=== PATIENT | female | born 1975 | race Two or more races ===

== ENCOUNTER 2018-12-19 01:13 | Emergency (ER) | payer SELFPAY ==
[2018-12-19] MEDS ORDERED: KETOROLAC TROMETHAMINE 60 MG/2 ML SDV IM ONE (04:18)
[2018-12-19] MEDS ORDERED: HYDROCODONE/ACETAMINOPHEN 5-325 MG (6 TAB/ER DISP) PO PRN (04:18)
--- NOTE | 2018-12-19 04:21 | ER Document Report ---
HPI - HPI Patient complains to provider of: lower back pain Time Seen by Provider: 12/19/18 04:08 Pain Level: 5 Context: Patient is a 43-year-old female that comes to the emergency department for chief complaint of lower back pain on the left side. She states that pain started earlier today. She states she gets this frequently, she states she has a history of degenerative disc disease and frequently develops muscle spasms. She denies radiation down her leg, comes around slightly towards the hip, she states she has arthritis in her hip and she is used to this as well. She denies any incontinence, numbness, fever, history of IV drug abuse. She denies any injury. - CONSTITUTIONAL Constitutional: DENIES: Fever, Chills - REPRODUCTIVE Reproductive: DENIES: : - MUSCULOSKELETAL Musculoskeletal: REPORTS: Extremity pain - Lt hip/ posterior GM Past Medical History - General Information source: Patient - Social History Smoking Status: Never Smoker Frequency of alcohol use: None Drug Abuse: None Lives with: Family Family History: Reviewed & Not Pertinent Patient has suicidal ideation: No Patient has homicidal ideation: No Endocrine Medical History: Reports: Hx Diabetes Mellitus Type 2 Renal/ Medical History: Denies: Hx Peritoneal Dialysis - Immunizations Immunizations up to date: Yes Hx Diphtheria, Pertussis, Tetanus Vaccination: Yes Vertical Provider Document - CONSTITUTIONAL General Appearance: WD/WN, No Apparent Distress - Patient has wincing with movement and moves stiffly but while she is relaxed on the bed she does not appear to be in any distress, Obese - INFECTION CONTROL TRAVEL OUTSIDE OF THE [place] IN LAST 30 DAYS: No - HEENT HEENT: Atraumatic, Normocephalic - NECK Neck: Normal Inspection - RESPIRATORY Respiratory: Breath Sounds Normal, No Respiratory Distress - CARDIOVASCULAR Cardiovascular: Regular Rate, Regular Rhythm - GI/ABDOMEN Gastrointestinal: Abdomen Soft, Abdomen Non-Tender - BACK Back: negative: Normal Inspection - Very specific tenderness along the left paralumbar musculature with tight muscle fibers and spasm. No midline tenderness, no saddle anesthesia, no signs of trauma. Normal upper and lower extremity range of motion, normal strength, normal distal neurovascular exam. - MUSCULOSKELETAL/EXTREMETIES Musculoskeletal/Extremeties: MAEW, FROM, Non-Tender - NEURO Level of Consciousness: Awake, Alert, Appropriate Motor/Sensory: No Motor Deficit, No Sensory Deficit - DERM Integumentary: Warm, Dry, No Rash Course - Re-evaluation Re-evalutation: Patient describing this is a flareup of her chronic lower back pain, she does not have any neurological deficits on exam, she is not in any obvious distress, she moves with a slight limp but again reports this is frequent and chronic with her arthritis of the hip. New to the area, trying to establish insurance. Examination is benign other than tight muscle fibers and pain with palpation of the left paraspinal musculature. Negative straight leg raise. No midline tenderness. No saddle anesthesia. Patient states she has had good results with Toradol in the past but poor results with Flexeril or similar muscle relaxer. As a result she was given Toradol and just a few diazepam with specific i nstructions, follow-up instructions, and return precautions which were discussed in detail. Patient states satisfaction and agreement with plan. - Vital Signs Vital signs: Temp Pulse Resp BP Pulse Ox 97.7 F 79 20 141/103 H 99 12/19/18 01:19 12/19/18 01:19 12/19/18 01:19 12/19/18 01:19 12/19/18 01:19 Discharge - Discharge Clinical Impression: Lower back pain Qualifiers: Chronicity: acute Back pain laterality: left Sciatica presence: without sciatica Qualified Code(s): M54.5 - Low back pain Condition: Stable Disposition: HOME, SELF-CARE Additional Instructions: Evaluation is consistent with strain and spasm of the paraspinal musculature at the lumbar area. Take muscle relaxer as prescribed, apply heat to the area, take [id number] anti-inflammatory, rest the area. Follow-up with primary care for additional evaluation and management. Return if you worsen including numbness, inability to urinate, inability to control your bowels, fever, or any other concerning or worsening symptoms. Prescriptions: Diazepam [Valium 5 mg Tablet] 1 - 2 tab PO TID PRN #10 tablet PRN Reason:
[2018-12-19 04:50] VITALS: BP 133/93
== END 2018-12-19 04:51 | disposition home or self-care (01) ==
LOC: ER 01:13
DX: M54.5 Low back pain (principal); M62.830 Muscle spasm of back; E11.9 Type 2 diabetes mellitus without complications; E66.9 Obesity, unspecified
CPT/HCPCS: 99283; 96372; J1885

== ENCOUNTER 2019-01-10 20:59 | Emergency (ER) | payer MEDICAID ==
[2019-01-10 23:37] LABS: APPEARANCE,URINE CLEAR; BILIRUBIN,URINE NEGATIVE (NEGATIVE); COLOR,URINE STRAW; GLUCOSE, URINE >=500 mg/dL (NEGATIVE); KETONES,URINE NEGATIVE (NEGATIVE); LEUKOCYTE ESTERASE,URINE NEGATIVE (NEGATIVE); NITRITE,URINE NEGATIVE (NEGATIVE); PROTEIN,URINE NEGATIVE (NEGATIVE); URINE SPECIFIC GRAVITY 1.018; UROBILINOGEN,URINE NEGATIVE mg/dL (<2.0)
--- NOTE | 2019-01-11 00:36 | ER Document Report ---
ED General - General Chief Complaint: Vag Bleeding, +preg <12wks Stated Complaint: SPOTTING,STOMACH PAIN Time Seen by Provider: 01/10/19 23:44 Notes: Patient is a 43-year-old female presents with complaint of some vaginal spotting and lower abdominal cramping. She just recently found out she is . She has not yet had an ultrasound. She denies any heavy bleeding. She says that he did start after having sex with her last night. She is . She said 6 live children. She denies any fevers. No other complaints at this time. TRAVEL OUTSIDE OF THE [place] IN LAST 30 DAYS: No - Related Data Allergies/Adverse Reactions: aspirin Allergy (Verified 12/19/18 01:14) Past Medical History - General Last Menstrual Period: oct or nov - Social History Smoking Status: Former Smoker Chew tobacco use (# tins/day): No Frequency of alcohol use: None Drug Abuse: None Family History: Reviewed & Not Pertinent Patient has suicidal ideation: No Patient has homicidal ideation: No - Past Medical History Cardiac Medical History: Reports: Hx Hypertension Endocrine Medical History: Reports: Hx Diabetes Mellitus Type 2 Renal/ Medical History: Denies: Hx Peritoneal Dialysis GI Medical History: Reports: Hx Hiatal Hernia Past Surgical History: Reports: Hx Cholecystectomy, Hx Orthopedic Surgery - 2000 - Immunizations Immunizations up to date: Yes Hx Diphtheria, Pertussis, Tetanus Vaccination: Yes Review of Systems - Review of Systems Notes: My Normal Review Basic REVIEW OF SYSTEMS: CONSTITUTIONAL : Denies fever, chills, or sweats. Denies recent illness. EENT: Denies eye, ear, throat, or mouth pain or symptoms. Denies nasal or sinus congestion. RESPIRATORY: Denies cough, cold, or chest congestion. Denies shortness of breath, difficulty breathing, or wheezing. GASTROINTESTINAL: Lower abdominal pain. Denies nausea, vomiting, or diarrhea. Denies constipation. Last BM: GENITOURINARY: Denies difficulty urinating, painful urination, burning, frequency, or blood in urine. FEMALE GENITOURINARY: Vaginal spotting. MUSCULOSKELETAL: Denies neck or back pain or joint pain or swelling. SKIN: Denies rash or skin lesions. NEUROLOGICAL: Denies altered mental status or loss of consciousness. Denies headache. Denies weakness or paralysis or loss of use of either side. Denies problems with gait or speech. Denies sensory or motor loss. ALL OTHER SYSTEMS REVIEWED AND NEGATIVE. Physical Exam - Vital signs Vitals: Temp Pulse Resp BP Pulse Ox 98.5 F 90 18 140/90 H 100 01/10/19 21:28 01/10/19 21:28 01/10/19 21:28 01/10/19 21:28 01/10/19 21:28 - Notes Notes: General Appearance: Well nourished, alert, cooperative, no acute distress, no obvious discomfort. Well-appearing. Vitals: reviewed, See vital signs table. Head: no swelling or tenderness to the head Eyes: PERRL, EOMI, Conjuctiva clear Mouth: No decreasd moisture Lungs: No wheezing, No rales, No rhonci, No accessory muscle use, good air exchange bilaterally. Heart: Normal rate, Regular rythm, No murmur, no rub Abdomen: Normal BS, soft, No rigidity, No reproducible abdominal tenderness to palpation, No guarding, no rebound, no abdominal masses, no organomegaly Extremities: strength 5/5 in all extremities, good pulses in all extremities, no swelling or tenderness in the extremities, no edema. Skin: warm, dry, appropriate color, no rash Neuro: speech clear, oriented x 3, normal affect, responds appropriately to questions. Course - Re-evaluation Re-evalutation: 01/11/19 05:46 Ultrasound shows gestational sac but no treating . Her hCG level is only 800 so this is not completely surprising. I talked the patient like informed her that this likely is pest control service representative for being for early over the disc can also mean that she has a blighted ovum. She has an appointment with her OB doctor on Sunday. I encouraged her to follow-up with OB doctor on Sunday and have her blood work rechecked to see if her hCG levels increasing. I informed her that ectopic is highly unlikely however is not completely impossible and therefore she should have a low threshold to return to the ER if she has worsening pain, heavy bleeding, or if she feels unwell. Patient agrees with plan and will be discharged home. Dictation of this chart was performed using voice recognition software; therefore, there may be some unintended grammatical errors. - Vital Signs Vital signs: Temp Pulse Resp BP Pulse Ox 98.3 F 80 18 132/88 H 99 01/11/19 03:09 01/11/19 03:09 01/11/19 03:09 01/11/19 03:09 01/11/19 03:09 - Laboratory Laboratory results interpreted by me: 01/10/19 01/11/19 22:52 00:10 Beta HCG, Quant 801.25 H Urine Glucose (UA) >=500 H Urine Blood LARGE H Urine HCG, Qual POSITIVE H Discharge - Discharge Clinical Impression: Vaginal bleeding during Condition: Good Disposition: HOME, SELF-CARE Additional Instructions: Your ultrasound shows a gestational sac but we do not yet see the baby. As discussed with you this is likely because you have a early however this can be pest control service representative of something called a blighted ovum or a baby does not form. We will not know this for sure until your repeat hormone levels done. This can be done by your OB doctor at your appointment on Sunday. I have printed off your test results today for you to take with you to your appointment on Sunday. It is unlikely that you have an ectopic at this time however there are rare cases where people have a gestational sac in the uterus on ultrasound and go on to develop an ectopic outside the uterus. Signs of this would be severe pain and sometimes heavy bleeding. If you have severe pain or increasing bleeding then have a low threshold to return to ER for reevaluation. You take your vitamins as prescribed. Please avoid sexual activity and heavy lifting until cleared by your OB doctor.
--- NOTE | 2019-01-11 02:29 | RADIOLOGY REPORT (SQ) ---
EXAM DESCRIPTION: US TRANSVAGINAL COMPLETED DATE/TME: 01/11/2019 00:03 CLINICAL HISTORY: 43 years, Female, vaginal bleeding in COMPARISON: None. TECHNIQUE: Transverse and longitudinal transvaginal images in a first trimester patient LIMITATIONS: None. FINDINGS: The uterus measures 10 x 5 x 5 cm. Cervical length is 3 cm. There is a visible intrauterine gestational sac. No yolk sac or heart tones at this time. No visible pole. Current ultrasound age is 5 weeks 2 days. The maternal ovaries are not well seen, at least in part secondary to patient body habitus and their position in the pelvis. However, there is a complex appearing cystic mass in the left adnexa. This has peripheral areas of soft tissue nodularity and possible calcification. This could reflect dermoid cyst or teratoma, with other etiologies not excluded.. This measures approximately 7 x 5 x 7 cm. No free fluid. IMPRESSION: Single, intrauterine gestation with current ultrasound age 5 weeks 2 days. Close obstetric follow-up recommended. Correlate with beta hCG levels. The ovaries are not well seen however there is a complex mixed cystic and solid mass in the left adnexa. This could reflect dermoid cyst/teratoma. Other etiologies are not excluded. Please refer to below for follow-up. Recommendations for f/u of ovarian complex cysts (1): Endometrioma: <= 7 cm: US f/u 6-12 wks. If not surgically resected, US f/u annually. >7 cm: Consider MR w/IVC or surgical evaluation. If not surgically resected, US f/u annually. Dermoid: <= 5 cm: MR w/IV contrast. If not surgically resected, US f/u annually. >5 cm: Surgical evaluation. If not surgically resected, MR w/IVC; then US f/u annually Indeterminate cyst - multiple thin <=3 mm septations: Any size in any age: Consider surgical evaluation. Indeterminate cyst - non-hyperechoic nodule w/o blood flow: Any size in any age: Consider MR w/IVC or surgical evaluation. Indeterminate cyst - other, not classic for but suggestive of hemorrhagic cyst, endometrioma or dermoid: Pre-menopause: <= 7 cm: US f/u 6-12 weeks. If unchanged, continue f/u with US or consider MR w/IVC. If these do not confirm endometrioma or dermoid, consider surgical evaluation. >7 cm: Consider MR w/IVC or surgical evaluation. Post-menopause (>=1 year from last menstrual period): Any size: Consider surgical evaluation. Cyst worrisome for malignancy (thick, irregular >=3 mm septations or nodule with blood flow): Any size in any age: Consider surgical evaluation. (1) Recommendations based upon the 2010 SRU Consensus Conference Statement on the Management of Asymptomatic Ovarian and Other Adnexal Cysts Imaged at US: Radiology. 2009;256(3):943-54 copyright 2011 [employer]- All Rights Reserved
[2019-01-11 03:11] VITALS: BP 132/88
== END 2019-01-11 03:11 | disposition home or self-care (01) ==
LOC: ER 20:59
DX: O46.91 Antepartum hemorrhage, unspecified, first trimester (principal); O16.1 Unspecified maternal hypertension, first trimester; O24.911 Unspecified diabetes mellitus in pregnancy, first trimester; O26.891 Other specified pregnancy related conditions, first trimester; R10.30 Lower abdominal pain, unspecified; Z3A.00 Weeks of gestation of pregnancy not specified
CPT/HCPCS: 36415; 76817; 81001; 81025; 84702; 86900; 86901; 93976; 99284

== ENCOUNTER 2019-01-16 18:43 | Emergency (ER) | payer SELFPAY ==
[2019-01-16 20:31] LABS: APPEARANCE,URINE CLEAR; BILIRUBIN,URINE NEGATIVE (NEGATIVE); COLOR,URINE STRAW; GLUCOSE, URINE >=500 mg/dL (NEGATIVE); KETONES,URINE NEGATIVE (NEGATIVE); LEUKOCYTE ESTERASE,URINE NEGATIVE (NEGATIVE); NITRITE,URINE NEGATIVE (NEGATIVE); PROTEIN,URINE NEGATIVE (NEGATIVE); URINE SPECIFIC GRAVITY 1.018; UROBILINOGEN,URINE NEGATIVE mg/dL (<2.0)
[2019-01-16 21:07] LABS: ABSOLUTE EOSINOPHILS # (AUTO) 0.1 10^3/uL (0.0-0.6); ABSOLUTE LYMPHOCYTES (AUTO) 1.7 10^3/uL (0.5-4.7); ABSOLUTE MONOCYTES (AUTO) 0.3 10^3/uL (0.1-1.4); ABSOLUTE NEUT (AUTO) 2.4 10^3/uL (1.7-8.2); BASOPHILS % (AUTO) 0.9 % (0-2); EOSINOPHILS % (AUTO) 2.9 % (0-6); HEMATOCRIT 40.5 % (36.0-47.0); HEMOGLOBIN 13.8 g/dL (12.0-15.5); MEAN CORPUSCULAR HEMOGLOBIN 29.2 pg (27.0-33.4); MEAN CORPUSCULAR VOLUME 86 fl (80-97); MONOCYTES % (AUTO) 7.5 % (3-13); PLATELET COUNT 271 10^3/uL (150-450); RED BLOOD COUNT 4.71 10^6/uL (3.72-5.28); RED CELL DISTRIBUTION WIDTH 13.5 % (11.5-14.0); SEGMENTED NEUTROPHILS % (AUTO) 52.7 % (42-78); TOTAL CELLS COUNTED % (AUTO) 100 %; WHITE BLOOD COUNT 4.6 10^3/uL (4.0-10.5)
--- NOTE | 2019-01-16 21:26 | ER Document Report ---
ED Medical Screen (RME) - General Chief Complaint: Vaginal Bleeding Stated Complaint: VAGINAL BLEEDING Time Seen by Provider: 01/16/19 21:23 Primary Care Provider: ILDEFONSO MACK CNM [Primary Care Provider] - Follow up as needed Notes: patient reports to the ED with complaints of vaginal bleeding. Patient is . Approximately 6 weeks. She reports she started spotting on Sunday and today she felt a large blood clot. She had appointment on Sunday and was told everything was fine. Denies other symptoms such as fever vomiting diarrhea. I have greeted and performed a rapid initial assessment of this patient. A comprehensive ED assessment and evaluation of the patient, analysis of test results and completion of the medical decision making process will be conducted by additional ED providers. TRAVEL OUTSIDE OF THE [place] IN LAST 30 DAYS: No - Related Data Allergies/Adverse Reactions: aspirin Allergy (Verified 01/16/19 18:48) Past Medical History - Past Medical History Cardiac Medical History: Reports: Hx Hypertension Endocrine Medical History: Reports: Hx Diabetes Mellitus Type 2 Renal/ Medical History: Denies: Hx Peritoneal Dialysis GI Medical History: Reports: Hx Hiatal Hernia Past Surgical History: Reports: Hx Cholecystectomy, Hx Orthopedic Surgery - 2000 - Immunizations Immunizations up to date: Yes Hx Diphtheria, Pertussis, Tetanus Vaccination: Yes Physical Exam - Vital signs Vitals: Temp Pulse Resp BP Pulse Ox 98.9 F 95 18 128/82 H 100 01/16/19 18:54 01/16/19 18:54 01/16/19 18:54 01/16/19 18:54 01/16/19 18:54 Course - Vital Signs Vital signs: Temp Pulse Resp BP Pulse Ox 98.9 F 95 18 128/82 H 100 01/16/19 18:54 01/16/19 18:54 01/16/19 18:54 01/16/19 18:54 01/16/19 18:54 - Laboratory Result Diagrams: 01/16/19 20:45 Laboratory results interpreted by me: 01/16/19 20:00 Urine Glucose (UA) >=500 H Urine Blood MODERATE H Doctor's Discharge - Discharge Referrals: ILDEFONSO MACK CNM [Primary Care Provider] - Follow up as needed
--- NOTE | 2019-01-17 00:22 | RADIOLOGY REPORT (SQ) ---
US PELVIS HISTORY: Early . Pelvic pain. COMPARISON: 01/11/2019 TECHNIQUE: Grayscale, color Doppler, and spectral Doppler ultrasound images of the pelvis were obtained. FINDINGS: There is an intrauterine gestational sac with a mean sac diameter of 0.85 cm, corresponding to 5 weeks 5 days of . No pole or yolk sac is seen at this time. There is a complex lesion in the left adnexa which measures 6.7 cm containing echogenic material. There is normal color Doppler blood flow in the left ovary. Right ovary is not seen. IMPRESSION: 1. Intrauterine gestational sac corresponding to 5 weeks 5 days of . No yolk sac or pole is seen at this time. Findings may represent early . Recommend short-term follow-up ultrasound imaging. 2. Unchanged complex mass in the left adnexa which may represent a dermoid cyst. Consider MRI for complete evaluation.
--- NOTE | 2019-01-17 02:27 | ER Document Report ---
ED General - General Chief Complaint: Vaginal Bleeding Stated Complaint: VAGINAL BLEEDING Time Seen by Provider: 01/16/19 21:23 Primary Care Provider: GHASSAN GRIFFIN DO [ACTIVE STAFF] - Follow up in 3-5 days Notes: Patient is a 43-year-old female who presents emergency department with a chief complaint of bleeding and passing a large clot. She passed her clot around 1800 this evening. She has had bleeding since last Sunday but today she was more active and noticed that she had a larger clot. She denies any cramping but states that she feels a little bit of discomfort. She was seen by the health department the other day and everything checked out normal. She has not followed up with [facility] because she does not have an appointment until later. TRAVEL OUTSIDE OF THE [place] IN LAST 30 DAYS: No - Related Data Allergies/Adverse Reactions: aspirin Allergy (Verified 01/16/19 18:48) Past Medical History - Social History Smoking Status: Never Smoker Family History: Reviewed & Not Pertinent - Past Medical History Cardiac Medical History: Reports: Hx Hypertension Endocrine Medical History: Reports: Hx Diabetes Mellitus Type 2 Renal/ Medical History: Denies: Hx Peritoneal Dialysis GI Medical History: Reports: Hx Hiatal Hernia Past Surgical History: Reports: Hx Cholecystectomy, Hx Orthopedic Surgery - 2000 - Immunizations Immunizations up to date: Yes Hx Diphtheria, Pertussis, Tetanus Vaccination: Yes Review of Systems - Review of Systems Notes: REVIEW OF SYSTEMS: CONSTITUTIONAL : Denies recent illness. Denies recent unintentional weight loss. Denies fever, chills, or sweats. EENT: Denies eye, ear, throat, or mouth pain, discharge, or symptoms. Denies nasal or sinus congestion. CARDIOVASCULAR: Denies chest pain. RESPIRATORY: Denies shortness of breath, cough, congestion, difficulty breathing, or wheezing. GASTROINTESTINAL: Denies nausea, vomiting, and diarrhea. Denies abdominal pain. Denies constipation. Last BM: GENITOURINARY: Denies difficulty urinating, burning, blood in urine, urgency or frequency. FEMALE GENITOURINARY: See HPI MUSCULOSKELETAL: Denies neck and back pain. Denies joint pain or swelling. SKIN: Denies rash, itchiness, or lesions HEMATOLOGIC : Denies easy bruising or bleeding. LYMPHATIC: Denies swollen, painful, enlarged glands. NEUROLOGICAL: Denies no numbness or tingling denies weakness. Denies headache. Denies altered mental status. Denies alteration in speech. PSYCHIATRIC: Denies stress, anxiety, alteration in sleep patterns, or depression. All other systems reviewed and negative. Physical Exam - Vital signs Vitals: Temp Pulse Resp BP Pulse Ox 98.9 F 95 18 128/82 H 100 01/16/19 18:54 01/16/19 18:54 01/16/19 18:54 01/16/19 18:54 01/16/19 18:54 - Notes Notes: PHYSICAL EXAMINATION: GENERAL: Appears well, healthy, well-nourished, no acute distress. HEAD: Normocephalic, atraumatic. EYES: PERRL, conjunctiva normal, all extraocular movements intact, sclera nonicteric ENT: Moist mucous membranes. NECK: Supple, no noticeable swelling, redness, rash. Normal range of motion. LUNGS: Equal breath sounds bilaterally and clear to auscultation. No wheezes rales or rhonchi. CARDIOVASCULAR: S1-S2, regular rate, regular rhythm. Radial pulses 2+, normal. ABDOMEN: Normoactive bowel sounds. Soft, mildly tender, no guarding, no rebound tenderness, and no masses palpated. EXTREMITIES: Normal strength and range of motion, no pitting or edema. No cyanosis. NEUROLOGICAL: Moves all extremities upon command. Strength 5/5 in all extremities. PSYCH: Normal mood, normal affect. SKIN: Warm, dry. No rash, lesions, ulcerations noted. Normal skin turgor. Course - Re-evaluation Re-evalutation: 01/17/19 02:27 Patient hCG has decreased from 800- to 597. There is still a gestational sac on ultrasound, but there is a possibility she could be miscarrying due to her hCG levels dropping. She will follow-up with [facility] or come here to the emergency department if she continues to have worsening bleeding. I told her to be on pelvic rest at this time. She agrees. Her hematology is stable. Urinalysis has blood in it, consistent with bleeding. Verbal discharge instructions were given to the patient. They verbalized understanding. They are stable for discharge. - Vital Signs Vital signs: Temp Pulse Resp BP Pulse Ox 98.1 F 86 20 145/80 H 98 01/17/19 03:20 01/17/19 03:20 01/17/19 03:20 01/17/19 03:20 01/17/19 03:20 - Laboratory Result Diagrams: 01/16/19 20:45 Laboratory results interpreted by me: 01/16/19 01/16/19 20:00 20:45 Beta HCG, Quant 579.66 H Urine Glucose (UA) >=500 H Urine Blood MODERATE H Discharge - Discharge Clinical Impression: Vaginal bleeding Condition: Stable Disposition: HOME, SELF-CARE Additional Instructions: You were seen today in the emergency department for vaginal bleeding. Your hCG levels have dropped. There is a possibility that you could be miscarrying at this time. Please follow-up with [facility] in regards to this visit. See if you can get an earlier visit due to increased bleeding. If you continue to have bleeding or clots, please return to the emergency department. Referrals: GHASSAN GRIFFIN DO [ACTIVE STAFF] - Follow up in 3-5 days
[2019-01-17 04:54] VITALS: BP 145/80
== END 2019-01-17 03:25 | disposition home or self-care (01) ==
LOC: ER 18:43
DX: O20.9 Hemorrhage in early pregnancy, unspecified (principal); Z90.49 Acquired absence of other specified parts of digestive tract
CPT/HCPCS: 36415; 76817; 81001; 84702; 85025; 86900; 86901; 99284

== ENCOUNTER → 2019-01-17 | Outpatient (CLI) | payer SELFPAY ==
--- NOTE | 2019-01-17 15:07 | RADIOLOGY REPORT (SQ) ---
EXAM DESCRIPTION: U/S OB TRANSVAGINAL W/O DOP COMPLETED DATE/TIME: 01/17/2019 2:28 pm REASON FOR STUDY: ENCTR FOR SUPERVISION OF OTHER NORMAL , 1ST TRIMESTER (Z34.81) Z34.81 EN COUNTER FOR SUPRVSN OF NORMAL , FIRST TRIM COMPARISON: 01/16/2019 TECHNIQUE: Transvaginal and transabdominal static and realtime grayscale images acquired of the pelv is. Additional selected spectral and color Doppler images recorded. All images stored on PACs. bHCG: Not available. CLINICAL DATES: ITZEL: 09/13/2019. EGA: 5 weeks 6 days LIMITATIONS: None. FINDINGS: FETUS: Intrauterine gestational sac visualized sonographically. No pole or yolk sa c visualized. ULTRASOUND EGA: 5 weeks 3 days ULTRASOUND ITZEL: 09/16/2019 GESTATIONAL SAC: 0.66 cm CRL: Not visualized. FHR: Not visualized. SUBCHORIONIC BLEED: Yes. SIZE OF BLEED: 1.0 x 0.8 x 0.3 cm. UTERUS: The uterus measures 8.8 x 5.6 x 4.8 cm. No masses. No anomalies. CERVICAL LENGTH: 3.1 cm Closed. RIGHT ADNEXA: A heterogenous complex area in the right adnexal with fluid-fluid level, small cystic component and hyperechoic areas with posterior shadowing measures 9.4 x 9.3 x 7.6 cm. No blood flow demonstrated. Considerations for this finding includes right ovarian neoplasm, benign versus maligna nt, as well as other etiologies. LEFT ADNEXA: As on the previous examination, two complex masses in the left adnexum with septations, echogenic areas and posterior shadowing. The masses measure 7.5 x 6.8 x 6.0 cm and 6.1 x 5.1 x 4.2 cm. No blood flow demonstrated. Considerations for these findings include dermoids, as well as othe r etiologies. FREE FLUID: None. OTHER: No other significant finding. IMPRESSION: 1. An intrauterine gestational sac corresponding to 5 weeks 3 days(please see prior exa mination report dated 01/16/2019). No pole or yolk sac identified. 2. As on the prior examination, complex masses in the left adnexal region. Considerations for these findings include dermoids, as well as other etiologies. 3. A complex heterogenous right adnexal mass. Considerations for this finding includes right ovaria n neoplasm, benign versus malignant, as well as other etiologies. Additional imaging, MRI examinatio n may be helpful. 4. Additional findings as above. TECHNICAL DOCUMENTATION: JOB ID: [id number] [employer]- All Rights Reserved rev-03/22 Reading location - IP/workstation name: [email or web address]
== END ==
LOC: RAD 12:55
PROVIDERS: ATTEND Midwife
DX: Z34.81 Encounter for supervision of other normal pregnancy, first trimester (principal)
CPT/HCPCS: 76817